=== PATIENT | female | born 1960 | race American Indian/Alaskan Native ===

== ENCOUNTER 2020-06-20 11:14 | Inpatient (IN) | payer OTHER ==
--- NOTE | 2020-06-20 11:34 | Emergency Department Report ---
HPI - General Chief Complaint: Neuro Symptoms/Deficit Time Seen by Provider: 06/20/20 11:15 - HPI HPI: This is a 59-year-old -[place] female presents to the emergency department via EMS from home with complaint of difficulty with her speech and ri ght-sided weakness. While the patient did have some difficulty with her speech last night at around 8 PM, this apparently resolved and the patient went to sleep at 2200 at her normal baseline status. She does not have any diagnosed medical conditions but it is unknown whether or not she follows with a physician regularly. Patient was found this morning to have the difficulty with speech and the right-sided weakness, by her , and EMS was called. Initially the patient was found to have an extremely elevated blood pressure with a systolic of close to 300. It was rechecked and found to be a systolic of 190. She does present to the emergency department hypertensive. ED Review of Systems ROS: Stated complaint: POSS CVA Other details as noted in HPI Comment: Unobtainable due to pts medical conditions Neurological: weakness, confusion, other (Aphasia) Physical Exam - Physical Exam Physical Exam: GENERAL: Patient is ill-appearing. HENT: Normocephalic. Atraumatic. Patient has moist mucous membranes. EYES: Extraocular motions are intact. Pupils equal reactive to light bilaterally. NECK: Supple. Trachea is midline. CHEST/LUNGS: Clear to auscultation. There is no respiratory distress noted. HEART/CARDIOVASCULAR: Regular. There is no tachycardia. There is no murmur. ABDOMEN: Abdomen is soft, nontender. Patient has normal bowel sounds. There is no abdominal distention. SKIN: Skin is warm and dry. NEURO: Patient is awake but is nonverbal and/or aphasic. Patient will try and follow commands. There is right-sided upper and lower extremity drift. MUSCULOSKELETAL: There is no tenderness or deformity. There is no limitation range of motion. There is no evidence of acute injury. ED Course - Reevaluation(s) Reevaluation #1: 06/20/20 15:41 Lab Results 06/20/20 06/20/20 06/20/20 Range/Units 11:44 11:44 11:44 WBC 7.9 (4.5-11.0) K/mm3 RBC 5.07 H (3.65-5.03) M/mm3 Hgb 16.6 H (10.1-14.3) gm/dl Hct 48.7 H (30.3-42.9) % MCV 96 (79-97) fl MCH 33 H (28-32) pg MCHC 34 (30-34) % RDW 13.9 (13.2-15.2) % Plt Count 175 (140-440) K/mm3 Lymph % (Auto) 28.3 (13.4-35.0) % Madison % (Auto) 5.1 (0.0-7.3) % Eos % (Auto) 0.4 (0.0-4.3) % Baso % (Auto) 0.5 (0.0-1.8) % Lymph # 2.2 (1.2-5.4) K/mm3 Madison # 0.4 (0.0-0.8) K/mm3 Eos # 0.0 (0.0-0.4) K/mm3 Baso # 0.0 (0.0-0.1) K/mm3 Seg Neutrophils % 65.7 (40.0-70.0) % Seg Neutrophils # 5.2 (1.8-7.7) K/mm3 PT 13.6 (12.2-14.9) Sec. INR 1.03 (0.87-1.13) APTT 29.0 (24.2-36.6) Sec. Thrombin Time 16.0 (15.1-19.6) Sec. Sodium 138 (137-145) mmol/L Potassium 4.7 (3.6-5.0) mmol/L Chloride 102.1 (98-107) mmol/L Carbon Dioxide 21 L (22-30) mmol/L Anion Gap 20 mmol/L BUN 15 (7-17) mg/dL Creatinine 0.8 (0.6-1.2) mg/dL Estimated GFR > 60 ml/min BUN/Creatinine Ratio 19 % Glucose 82 (65-100) mg/dL Calcium 9.9 (8.4-10.2) mg/dL Total Bilirubin 0.60 (0.1-1.2) mg/dL AST 24 (5-40) units/L ALT 9 (7-56) units/L Alkaline Phosphatase 108 (35-129) units/L Total Creatine Kinase 118 (30-135) units/L CK-MB (CK-2) 2.6 (0.0-4.0) ng/mL CK-MB (CK-2) Rel Index 2.2 (0-4) Troponin T < 0.010 (0.00-0.029) ng/mL Total Protein 7.8 (6.3-8.2) g/dL Albumin 4.1 (3.9-5) g/dL Albumin/Globulin Ratio 1.1 % - Consultations Consultation #1: 06/20/20 15:40 Patient was seen by the telemedicine neurologist, Dr. Mckenzie, immediately upon initiation of the code stroke. The patient was given an NIH stroke scale of 9. She is outside of the window for TPA. He does recommend CT angiography of imaging of the head and neck but has recommended that, secondary to her hypertensive issues, we wait for renal function to return from the labs. ED Medical Decision Making - Lab Data Result diagrams: 06/20/20 11:44 06/20/20 11:44 - EKG Data -: EKG Interpreted by Ks EKG shows normal: sinus rhythm, axis, intervals, QRS complexes, ST-T waves Rate: normal - EKG Data When compared to previous EKG there are: previous EKG unavailable Interpretation: normal EKG - Radiology Data Radiology results: report reviewed CT HEAD WITHOUT CONTRAST INDICATION : Stroke symptoms. TECHNIQUE: Axial imaging performed from the skull apex through the skull base without the use of contrast. Sagittal and coronal reformatted images. All CT scans at this location are performed using CT dose reduction for ALARA by means of automated exposure control. COMPARISON: None FINDINGS: Parenchyma: Mild cortical volume loss and mild chronic microangiopathy in the white matter are noted. Two chronic infarcts in the superior left basal ganglia measure 1.5 cm and 0.6 cm. There is an area of diminished attenuation in the left posterior watershed region measuring up to 2.9 x 1.9 cm in axial plane. This has the appearance of a subacute infarct. There is trace hyperdensity along the medial margin of this assumed subacute infarct which could represent minimal petechial hemorrhage. No large uncontained hemorrhage. Chronic focal infarct in the right cerebellum measures 1.2 x 0.4 cm. There is focal hyperdensity of the proximal basilar artery on axial image 9 which could represent a focal thrombosis although beam hardening artifact could also be considered. Ventricles: Ventricles are normal in size and appear symmetric. Bones: No acute osseous abnormality. Sinuses: Sinuses and mastoid air cells are clear. Soft tissues: Soft tissues including the orbits appear normal. IMPRESSION: Subacute appearing infarct in the left posterior watershed region as described. Question minimal petechial hemorrhagic change along the medial margin of this infarct. No large uncontained hemorrhage. Focal hyperdensity in the proximal basilar artery is suspicious for thrombosis. Volume loss, chronic microangiopathy in the white matter and chronic focal infarcts as described. CT angio head INDICATION / CLINICAL INFORMATION: 59 years Female; CVA. TECHNIQUE: Thin cut axial images obtained through the head during IV bolus contrast administration. Sagittal, coronal, and 3 plane MIP reconstructions performed by the technologist. NASCET type criteria used evaluate stenoses. Automated exposure control utilized for radiation reduction purposes. COMPARISON: None available. FINDINGS: INTERNAL CAROTID ARTERIES: There is mild calcification involving the distal internal carotid arteries without significant stenosis by NASCET criteria. VERTEBROBASILAR SYSTEM: The vertebral basilar system demonstrate appropriate caliber without significant focal stenosis at. 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 There is irregularity of the M1 segment of the left MCA near the trifurcation with moderate to marked stenosis on the mid images. This I would appear to be related to atherosclerotic disease. There is opacification of the adjacent trifurcation of vessels. However, there is relative paucity of vessels along the more distal branches with edema noted within the posterior left parietal lobe. This finding correlates with the earlier CT and compatible with evolving infarct. There is milder irregularity and narrowing of the right MCA trifurcation vessels. There is no significant focal stenosis involving visualized anterior cerebral arteries. ANEURYSM: None identified. ADDITIONAL FINDINGS: The dural venous sinuses opacify with contrast. IMPRESSION: There is moderate to marked stenosis involving the left M1 segment near the left MCA trifurcation as detailed above. There is edema projected within the left parietal lobe with possibility of adjacent of vessels compatible with decreased flow and evolving infarct. 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 - Medical Decision Making This patient presents to the emergency department with aphasia and right-sided deficits that were seen upon waking this morning. Last known well time was about 10 PM last night. Therefore the patient is not a TPA candidate. CT of the head without contrast shows what appears to be multiple old infarcts and a possible subacute infarct. Patient's labs have been mostly unremarkable. The patient has required a few doses of IV antihypertensive medication secondary to extremely elevated blood pressure. We are allowing some permissive hypertension and aiming for a blood pressure of about 170 systolic. The patient did have a CT angiography of the head and neck that shows moderate to marked stenosis involving the left M1 segment near the left MCA trifurcation. There appears to be an evolving infarct to the left parietal lobe. No large vessel occlusion or thrombus seen. Patient will be admitted to the hospital for further evaluation and treatment and was accepted for admission by the hospitalist, Dr. Aly. Critical Care Time: Yes Critical care time in (mins) excluding proc time.: 45 Critical care attestation.: If time is entered above; I have spent that time in minutes in the direct care of this critically ill patient, excluding procedure time. Due to the immediate potential for life-threatening deterioration due to underlying neurologic condition, I spent 45 minutes of critical care time with the patient. Critical Care Time: 45 minutes ED Disposition Clinical Impression: Acute CVA (cerebrovascular accident), Hypertensive urgency, malignant Disposition: DC-[id number] OP ADMIT IP TO THIS HOSP Is pt being admited?: Yes Condition: Poor Referrals: PRIMARY CARE, [Primary Care Provider] - 3-5 Days Time of Disposition: 15:36
--- NOTE | 2020-06-20 11:38 | Emergency Department Report ---
ED Neuro Deficit HPI - General Chief Complaint: Neuro Symptoms/Deficit Stated Complaint: POSS CVA Time Seen by Provider: 06/20/20 11:15 Source: patient, EMS Mode of arrival: Stretcher Limitations: No Limitations - History of Present Illness Initial Comments: [facility] Date of Service: 06/20/2020 11:08:24 Impression: Large Vessel Infarct Left Hemispheric Infarct CAITLIN Distribution Infarct Comments/Sign-Out: In this patient with no medical history (she may not of seen a doctor in years) she has severe hypertension and surprisingly multiple prior strokes which supposedly had no overt manifestation. She needs advanced imaging but there may already be an active infarct. She needs Echo, A1c, fasting lipid profile, blood pressure to be controlled down to 160 to 180 systolic today. Mechanism of Stroke: Not Clear Metrics: Last Known Well: 06/19/2020 22:00:00 [facility] Notification Time: 06/20/2020 11:07:31 Arrival Time: 06/20/2020 11:13:20 Stamp Time: 06/20/2020 11:08:24 Time First Login Attempt: 06/20/2020 11:11:04 Video Start Time: 06/20/2020 11:11:04 Symptoms: Unable to speak and right-sided weakness NIHSS Start Assessment Time: 06/20/2020 11:15:30 Patient is not a candidate for Alteplase/Activase. Patient was not deemed candidate for Alteplase/Activase thrombolytics because of Last Well Known Above 4.5 Hours. Video End Time: 06/20/2020 11:30:37 CT head was reviewed and results were: Chronic infarct left occipital lobe, left swartz radiata, multiple lacunar infarction thalamus, basal ganglia bilaterally. There is but I think may be a subacute infarct in the para sagittal left frontal lobe in the intracerebral artery distribution. Clinical Presentation is Suggestive of Large Vessel Occlusive Disease, Recommendations are as Follows CTA Head and Neck. Advanced Imaging to be Reviewed by ED Provider and SAM. Radiologist was not called back for review of advanced imaging because Not yet done although I think the possibility of intervention is low. ED Physician notified of diagnostic impression and management plan on 06/20/2020 11:29:00 Our recommendations are outlined below. Recommendations: Activate Stroke Protocol Admission/Order Set Stroke/Telemetry Floor Neuro Checks Bedside Swallow Eval DVT Prophylaxis IV Fluids, Normal Saline Head of Bed 30 Degrees Euglycemia and Avoid Hyperthermia (PRN Acetaminophen) Antiplatelet Therapy Recommended Sign Out: Discussed with Emergency Department Provider History of Present Illness: Patient is a 60 year old Female. 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 Initial blood pressure was said to be 300/190 and subsequent 199/170. No significant medical history including hypertension. On no prescription medications. Last seen normal was beyond 4.5 hours of presentation. There is no history of hemorrhagic complications or intracranial hemorrhage. There is no history of Recent Anticoagulants. There is no history of recent major surgery. There is no history of recent stroke. Past Medical History: Anticoagulant use: No Antiplatelet use: No Examination: BP(239/91 most recently), Pulse(86), Blood Glucose(80) 1A: Level of Consciousness - Alert; keenly responsive + 0 1B: Ask Month and Age - Aphasic + 2 1C: Blink Eyes & Squeeze Hands - Performs Both Tasks + 0 2: Test Horizontal Extraocular Movements - Normal + 0 3: Test Visual Christianson - No Visual Loss + 0 4: Test Facial Palsy (Use Grimace if Obtunded) - Normal symmetry + 0 5A: Test Left Arm Motor Drift - No Drift for 10 Seconds + 0 5B: Test Right Arm Motor Drift - Drift, but doesn't hit bed + 1 6A: Test Left Leg Motor Drift - No Drift for 5 Seconds + 0 6B: Test Right Leg Motor Drift - Drift, but doesn't hit bed + 1 7: Test Limb Ataxia (FNF/Heel-Grimaldo) - No Ataxia + 0 8: Test Sensation - Normal; No sensory loss + 0 9: Test Language/Aphasia - Mute/Global Aphasia: No Usable Speech/Auditory Comprehension + 3 10: Test Dysarthria - Mute/Anarthric + 2 11: Test Extinction/Inattention - No abnormality + 0 NIHSS Score: 9 Patient/Family was informed the Neurology Consult would happen via TeleHealth consult by way of interactive audio and video telecommunications and consented to receiving care in this manner. Due to the immediate potential for life-threatening deterioration due to underlying acute neurologic illness, I spent 35 minutes providing critical care. This time includes time for face to face visit via telemedicine, review of medical records, imaging studies and discussion of findings with providers, the patient and/or family. Dr Blair Mckenzie [facility] Case [id number] - Related Data Allergies/Adverse Reactions: Allergies Allergy/AdvReac Type Severity Reaction Status Date / Time No Known Allergies Allergy Unverified 06/20/20 11:15 ED Review of Systems ROS: Stated complaint: POSS CVA Other details as noted in HPI Neurological: weakness, confusion, other (Aphasia) ED Neuro Physical Exam - General Limitations: No Limitations General appearance: in distress Suspected Stroke: Yes - NIHSS Assessment Interval: Baseline 1a. Level of Consciousness: alert/keenly responsive 1b. LOC Questions: aphasic 1c. LOC Commands: performs tasks correctly 2. Best Gaze: normal 3. Visual: no visual loss 4. Facial Palsy: normal symmetrical movement 5b. Motor Arm Right: drift 5a. Motor Arm Left: no drift 6a. Motor Leg Left: no drift 6b. Motor Leg Right: drift 7. Limb Ataxia: absent 8. Sensory: normal 9. Best Language: mute/global aphasia 10. Dysarthria: severe dysarthria 11. Extinction/Inattention: no abnormality Total Score: 9 Stroke Severity: Moderate Stroke Critical care attestation.: If time is entered above; I have spent that time in minutes in the direct care of this critically ill patient, excluding procedure time. ED Disposition Clinical Impression: Stroke due to embolism of left anterior cerebral artery Disposition: OP ADMIT IP TO THIS HOSP Is pt being admited?: Yes Does the pt Need Aspirin: Yes Condition: Poor Referrals: PRIMARY CARE,MD [Primary Care Provider] - 3-5 Days
--- NOTE | 2020-06-20 11:52 | Cat Scan Report ---
CT HEAD WITHOUT CONTRAST INDICATION : Stroke symptoms. TECHNIQUE: Axial imaging performed from the skull apex through the skull base without the use of con trast. Sagittal and coronal reformatted images. All CT scans at this location are performed using C T dose reduction for ALARA by means of automated exposure control. COMPARISON: None FINDINGS: Parenchyma: Mild cortical volume loss and mild chronic microangiopathy in the white matter are noted . Two chronic infarcts in the superior left basal ganglia measure 1.5 cm and 0.6 cm. There is an are a of diminished attenuation in the left posterior watershed region measuring up to 2.9 x 1.9 cm in ax ial plane. This has the appearance of a subacute infarct. There is trace hyperdensity along the media l margin of this assumed subacute infarct which could represent minimal petechial hemorrhage. No larg e uncontained hemorrhage. Chronic focal infarct in the right cerebellum measures 1.2 x 0.4 cm. There is focal hyperdensity of the proximal basilar artery on axial image 9 which could represent a focal t hrombosis although beam hardening artifact could also be considered. Ventricles: Ventricles are normal in size and appear symmetric. Bones: No acute osseous abnormality. Sinuses: Sinuses and mastoid air cells are clear. Soft tissues: Soft tissues including the orbits appear normal. IMPRESSION: Subacute appearing infarct in the left posterior watershed region as described. Question minimal baljeet chial hemorrhagic change along the medial margin of this infarct. No large uncontained hemorrhage. Focal hyperdensity in the proximal basilar artery is suspicious for thrombosis. Volume loss, chronic microangiopathy in the white matter and chronic focal infarcts as described. CODE STROKE: Time of Communication (EST): 1144 hours Licensed Practitioner Receiving Report: Dr. Levine A read back was performed Signer Name: Kip Watson Jr, MD Signed: 06/20/2020 11:48 AM Workstation Name: [id number]
[2020-06-20 12:25] LABS: Basophils % (Auto) 0.5 % (0.0-1.8); Eosinophils % (Auto) 0.4 % (0.0-4.3); Hematocrit 48.7 % (30.3-42.9); Hemoglobin 16.6 gm/dl (10.1-14.3); Lymphocytes # (Auto) 2.2 K/mm3 (1.2-5.4); Lymphocytes % (Auto) 28.3 % (13.4-35.0); Mean Corpuscular HGB Conc 34 % (30-34); Mean Corpuscular Volume 96 fl (79-97); Monocytes # (Auto) 0.4 K/mm3 (0.0-0.8); Monocytes % (Auto) 5.1 % (0.0-7.3); Platelet Count 175 K/mm3 (140-440); Red Blood Count 5.07 M/mm3 (3.65-5.03); Red Cell Distribution Width 13.9 % (13.2-15.2)
[2020-06-20 12:43] LABS: Creatine Kinase MB 2.6 ng/mL (0.0-4.0)
[2020-06-20 12:44] LABS: INR 1.03 (0.87-1.13)
[2020-06-20 12:45] LABS: Alanine Aminotransferase 9 units/L (7-56); Albumin 4.1 g/dL (3.9-5); BUN/Creatinine Ratio 19; Blood Urea Nitrogen 15 mg/dL (7-17); Calcium 9.9 mg/dL (8.4-10.2); Hemolysis Index 20
--- NOTE | 2020-06-20 15:27 | Cat Scan Report ---
CT angio head INDICATION / CLINICAL INFORMATION: 59 years Female; CVA. TECHNIQUE: Thin cut axial images obtained through the head during IV bolus contrast administration. S agittal, coronal, and 3 plane MIP reconstructions performed by the technologist. NASCET type criteria used evaluate stenoses. Automated exposure control utilized for radiation reduction purposes. COMPARISON: None available. FINDINGS: INTERNAL CAROTID ARTERIES: There is mild calcification involving the distal internal carotid arteries without significant stenosis by NASCET criteria. VERTEBROBASILAR SYSTEM: The vertebral basilar system demonstrate appropriate caliber without signific ant focal stenosis at. 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 There is irregularity of the M1 segment of the left MCA near the trifurcation with moderate to marked stenosis on the mid images. This I would appear to be related to atherosclerotic disease. There is o pacification of the adjacent trifurcation of vessels. However, there is relative paucity of vessels a long the more distal branches with edema noted within the posterior left parietal lobe. This finding correlates with the earlier CT and compatible with evolving infarct. There is milder irregularity and narrowing of the right MCA trifurcation vessels. There is no signifi cant focal stenosis involving visualized anterior cerebral arteries. ANEURYSM: None identified. ADDITIONAL FINDINGS: The dural venous sinuses opacify with contrast. IMPRESSION: There is moderate to marked stenosis involving the left M1 segment near the left MCA trifurcation as detailed above. There is edema projected within the left parietal lobe with possibility of adjacent o f vessels compatible with decreased flow and evolving infarct. 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 Signer Name: Maximiliano Milner MD Signed: 06/20/2020 3:23 PM Workstation Name: [id number]
--- NOTE | 2020-06-20 15:33 | Cat Scan Report ---
CT angio neck INDICATION / CLINICAL INFORMATION: 59 years Female; CVA. TECHNIQUE: Thin cut axial images obtained through the head during IV bolus contrast administration. S agittal, coronal, and 3 plane MIP reconstructions performed by the technologist. NASCET type criteria used evaluate stenoses. All CT scans at this location are performed using CT dose reduction for ALAR A by means of automated exposure control. COMPARISON: None available. FINDINGS: CAROTID ARTERIES: There is no significant stenosis involving the carotid arteries by NASCET criteria. The carotid bifurcations are widely patent. VERTEBRAL ARTERIES: The vertebral arteries also demonstrate appropriate caliber without significant f ocal narrowing. ARCH: There is mild calcification involving the origin of the left subclavian artery. However, there is mild, less than 20% stenosis. ADDITIONAL FINDINGS: Remainder of the surrounding soft tissues are grossly normal. IMPRESSION: There is no significant stenosis involving carotid or vertebral arteries by NASCET criteria. Signer Name: Maximiliano Milner MD Signed: 06/20/2020 3:28 PM Workstation Name: [id number]
[2020-06-20] MEDS ORDERED: HYDROmorphone 1 MG/1 ML INJ ONE ×2 (18:25→20:46)
[2020-06-20] MEDS: HYDROmorphone 1 MG/1 ML INJ IV PRN ×2 (18:31→21:45)
--- NOTE | 2020-06-20 21:31 | History and Physical Report ---
History of Present Illness Date of examination: 06/20/20 Date of admission: 06/20/20 15:37 Chief complaint: Right-sided weakness and dysphasia since a.m. History of present illness: 49-year-old -[place] female with no significant past medical history was noticed to have difficulty in speech last night around 8 PM. This resolved and patient went to sleep. Did not seek any medical attention. In the a.m. patient had difficulty talking and also right-sided weakness. Her called EMS and in the emergency room her blood pressure was very high and a systolic blood pressure of 190 and diastolic of around 113. Patient was also having right- sided total weakness code stroke was called and stroke work-up was initiated patient was not a candidate for TPA because of time labs. No chest pain. No shortness of breath. No seizures. Not taking any blood pressure medications. Past History Past Medical History: hypertension (Noncompliant) Past Surgical History: No surgical history Social history: lives with family, full code Family history: hypertension Medications and Allergies Allergies Allergy/AdvReac Type Severity Reaction Status Date / Time No Known Allergies Allergy Unverified 06/20/20 11:15 Active Meds: Active Medications Hydromorphone HCl (Dilaudid) 0.5 mg IV Q3H PRN PRN Reason: Pain , Severe (7-10) Review of Systems All systems: negative Constitutional: fatigue, weakness, no weight loss, no weight gain, no fever Ears, nose, mouth and throat: no ear pain, no ear discharge, no nasal congestion, no dysphagia Breasts: deferred Cardiovascular: no chest pain, no orthopnea, no palpitations, no rapid/irregular heart beat Respiratory: no cough, no cough with sputum, no excessive sputum Gastrointestinal: no abdominal pain, no nausea, no vomiting Genitourinary Female: no dysuria, no urinary frequency, no urgency, no stress incontinence Menstruation: ammenorrhea Musculoskeletal: no neck stiffness, no neck pain Integumentary: no rash, no pruritis Neurological: paralysis, weakness, change in speech Psychiatric: no anxiety, no memory loss Endocrine: no cold intolerance, no heat intolerance, no polyphagia Hematologic/Lymphatic: no easy bruising, no easy bleeding Allergic/Immunologic: no urticaria, no allergic rhinitis, no wheezing Exam - Constitutional Vitals: Temp Pulse Resp BP Pulse Ox 97.3 F L 69 13 189/69 98 09/10/20 11:27 06/20/20 19:30 06/20/20 19:30 06/20/20 19:30 06/20/20 19:30 General appearance: Present: no acute distress, well-nourished - EENT Eyes: Present: PERRL ENT: hearing intact, clear oral mucosa - Neck Neck: Present: supple, normal ROM - Respiratory Respiratory effort: normal Respiratory: bilateral: CTA - Cardiovascular Heart rate: 78 Rhythm: regular Heart Sounds: Present: S1 & S2. Absent: rub, click - Extremities Extremities: pulses symmetrical, No edema Peripheral Pulses: within normal limits - Abdominal General gastrointestinal: Present: soft, non-tender, non-distended, normal bowel sounds Female genitourinary: Present: normal - Integumentary Integumentary: Present: clear, warm, dry - Musculoskeletal Musculoskeletal: right sided weakness (5/5 weakness ) - Psychiatric Psychiatric: appropriate mood/affect, intact judgment & insight - Neurologic Neurologic: focal deficits, other (Dysphasia present.) - Allied Health Allied health notes reviewed: nursing, case management HEART Score - HEART Score History: Slightly suspicious EKG: Non-specific Age: 45-65 Risk factors: 1-2 risk factors Troponin: Troponin T < 0.010 ng/mL (0.00-0.029) 06/20/20 11:44 Troponin: < normal limit HEART Score: 3 - Critical Actions Critical Actions: 0-3 pts:0.9-1.7%risk of adverse cardiac event.Candidate for discharge Results - Labs CBC & Chem 7: 06/20/20 11:44 06/20/20 11:44 Labs: Laboratory Last Values WBC 7.9 K/mm3 (4.5-11.0) 06/20/20 11:44 RBC 5.07 M/mm3 (3.65-5.03) H 06/20/20 11:44 Hgb 16.6 gm/dl (10.1-14.3) H 06/20/20 11:44 Hct 48.7 % (30.3-42.9) H 06/20/20 11:44 MCV 96 fl (79-97) 06/20/20 11:44 MCH 33 pg (28-32) H 06/20/20 11:44 MCHC 34 % (30-34) 06/20/20 11:44 RDW 13.9 % (13.2-15.2) 06/20/20 11:44 Plt Count 175 K/mm3 (140-440) 06/20/20 11:44 Lymph % (Auto) 28.3 % (13.4-35.0) 06/20/20 11:44 Alcorn % (Auto) 5.1 % (0.0-7.3) 06/20/20 11:44 Eos % (Auto) 0.4 % (0.0-4.3) 06/20/20 11:44 Baso % (Auto) 0.5 % (0.0-1.8) 06/20/20 11:44 Lymph # 2.2 K/mm3 (1.2-5.4) 06/20/20 11:44 Alcorn # 0.4 K/mm3 (0.0-0.8) 06/20/20 11:44 Eos # 0.0 K/mm3 (0.0-0.4) 06/20/20 11:44 Baso # 0.0 K/mm3 (0.0-0.1) 06/20/20 11:44 Seg Neutrophils % 65.7 % (40.0-70.0) 06/20/20 11:44 Seg Neutrophils # 5.2 K/mm3 (1.8-7.7) 06/20/20 11:44 PT 13.6 Sec. (12.2-14.9) 06/20/20 11:44 INR 1.03 (0.87-1.13) 06/20/20 11:44 APTT 29.0 Sec. (24.2-36.6) 06/20/20 11:44 Thrombin Time 16.0 Sec. (15.1-19.6) 06/20/20 11:44 Sodium 138 mmol/L (137-145) 06/20/20 11:44 Potassium 4.7 mmol/L (3.6-5.0) 06/20/20 11:44 Chloride 102.1 mmol/L (98-107) 06/20/20 11:44 Carbon Dioxide 21 mmol/L (22-30) L 06/20/20 11:44 Anion Gap 20 mmol/L 06/20/20 11:44 BUN 15 mg/dL (7-17) 06/20/20 11:44 Creatinine 0.8 mg/dL (0.6-1.2) 06/20/20 11:44 Estimated GFR > 60 ml/min 06/20/20 11:44 BUN/Creatinine Ratio 19 % 06/20/20 11:44 Glucose 82 mg/dL (65-100) 06/20/20 11:44 Calcium 9.9 mg/dL (8.4-10.2) 06/20/20 11:44 Total Bilirubin 0.60 mg/dL (0.1-1.2) 06/20/20 11:44 AST 24 units/L (5-40) 06/20/20 11:44 ALT 9 units/L (7-56) 06/20/20 11:44 Alkaline Phosphatase 108 units/L (35-129) 06/20/20 11:44 Total Creatine Kinase 118 units/L (30-135) 06/20/20 11:44 CK-MB (CK-2) 2.6 ng/mL (0.0-4.0) 06/20/20 11:44 CK-MB (CK-2) Rel Index 2.2 (0-4) 06/20/20 11:44 Troponin T < 0.010 ng/mL (0.00-0.029) 06/20/20 11:44 Total Protein 7.8 g/dL (6.3-8.2) 06/20/20 11:44 Albumin 4.1 g/dL (3.9-5) 06/20/20 11:44 Albumin/Globulin Ratio 1.1 % 06/20/20 11:44 Short CBC 06/20/20 Range/Units 11:44 WBC 7.9 (4.5-11.0) K/mm3 Hgb 16.6 H (10.1-14.3) gm/dl Hct 48.7 H (30.3-42.9) % Plt Count 175 (140-440) K/mm3 BMP 06/20/20 11:44 Sodium 138 Potassium 4.7 Chloride 102.1 Carbon Dioxide 21 L BUN 15 Creatinine 0.8 Glucose 82 Calcium 9.9 Cardiac Enzymes 06/20/20 Range/Units 11:44 Total Creatine Kinase 118 (30-135) units/L CK-MB (CK-2) 2.6 (0.0-4.0) ng/mL Troponin T < 0.010 (0.00-0.029) ng/mL Liver Function 06/20/20 Range/Units 11:44 Total Bilirubin 0.60 (0.1-1.2) mg/dL AST 24 (5-40) units/L ALT 9 (7-56) units/L Alkaline Phosphatase 108 (35-129) units/L Albumin 4.1 (3.9-5) g/dL - Imaging and Cardiology EKG: report reviewed (Sinus rhythm no acute ST-T wave changes) CT Scan - head: report reviewed Imaging and Cardiology: head CT Subacute appearing infarct in the left posterior watershed region as described. Question minimal petechial hemorrhagic change along the medial margin of this infarct. No large uncontained hemorrhage. Focal hyperdensity in the proximal basilar artery suspicious for thrombosis. Volume loss. Chronic microangiopathy in the white matter and chronic focal infarcts as described. Head CTA There is moderate to marked stenosis involving the left M1 segment near the left MCA trifurcation as detailed above. There is edema projected within the left parietal lobe with possibility of a distant of results compatible with decreased flow and involving infarct. 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 Neck CTA There is no significant stenosis involving the carotid or vertebral arteries by NASCET criteria Meek/IV: IV Catheter Type [Left INT / Saline Lock Antecubital] IV Catheter Type [Right INT / Saline Lock Antecubital] IV Catheter Type [Left Forearm INT / Saline Lock ] Assessment and Plan Advance Directives: Yes (Full code) VTE prophylaxis?: Chemical Plan of care discussed with patient/family: Yes - Patient Problems (1) Acute CVA (cerebrovascular accident) Current Visit: Yes Status: Acute Plan to address problem: CVA protocol Neurology consult requested Patient not a TPA candidate Patient has acute changes on the left MCA territory MRI requested No MRA because patient has neck CTA and head CTA Echocardiogram Carotid duplex cannot order because of the neck CTA and head CTA Neurology consult requested (2) Hypertensive urgency, malignant Current Visit: Yes Status: Acute Plan to address problem: Pneumatic antihypertensives started and IV labetalol/oral clonidine as needed. IV hydralazine is not available. Patient started on valsartan 160 every 12 and carvedilol 12.5-12 and amlodipine 10 mg p.o. daily. (3) Volume depletion Current Visit: Yes Status: Acute Plan to address problem: As indicated by high hemoglobin and hematocrit IV fluids for 12 to 24 hours (4) DVT prophylaxis Current Visit: Yes Status: Acute Plan to address problem: Patient was not started on heparin because of petechial hemorrhages on CT head GI prophylaxis
[2020-06-20] MEDS ORDERED: ONDANSETRON 4 MG/2 ML INJ IV PRN (21:32)
[2020-06-20] MEDS ORDERED: ACETAMINOPHEN 325 MG TAB PO PRN (21:32)
[2020-06-20] MEDS ORDERED: oxyCODONE /ACETAMINOPHEN 5-325MG TAB PO PRN (21:32)
[2020-06-20] MEDS ORDERED: HEPARIN 5,000 UNIT/1 ML VIAL ONE (22:53)
[2020-06-20] MEDS ORDERED: FAMOTIDINE 20 MG/2 ML INJ IV ONE (22:54)
[2020-06-20] MEDS: HEPARIN 5,000 UNIT/1 ML VIAL SUB-Q SCH (22:55)
[2020-06-20] MEDS: FAMOTIDINE 20 MG/2 ML INJ IV SCH (22:55)
[2020-06-21] MEDS ORDERED: hydrALAZINE 20 MG/1 ML INJ IV ONE (02:18)
[2020-06-21] MEDS: SODIUM CHLORIDE 0.9% 1000 ML 1,000 ML IV SCH (02:45)
[2020-06-21 08:49] LABS: Basophils # (Auto) 0.1 K/mm3 (0.0-0.1); Basophils % (Auto) 0.9 % (0.0-1.8); Eosinophils % (Auto) 0.6 % (0.0-4.3); Hematocrit 45.6 % (30.3-42.9); Hemoglobin 15.2 gm/dl (10.1-14.3); Lymphocytes # (Auto) 2.5 K/mm3 (1.2-5.4); Lymphocytes % (Auto) 33.6 % (13.4-35.0); Mean Corpuscular HGB Conc 33 % (30-34); Mean Corpuscular Volume 96 fl (79-97); Monocytes # (Auto) 0.5 K/mm3 (0.0-0.8); Monocytes % (Auto) 7.2 % (0.0-7.3); Platelet Count 182 K/mm3 (140-440); Red Blood Count 4.73 M/mm3 (3.65-5.03); Red Cell Distribution Width 14.1 % (13.2-15.2)
[2020-06-21 09:12] LABS: Alanine Aminotransferase 8 units/L (7-56); Albumin 4.1 g/dL (3.9-5); BUN/Creatinine Ratio 21; Blood Urea Nitrogen 19 mg/dL (7-17); Chol/HDL Ratio 2.72 %; HDL Cholesterol 77 mg/dL (40-59); Hemolysis Index 8; LDL Cholesterol,Direct 131 mg/dL (50-130)
[2020-06-21] MEDS: ASPIRIN 325 MG TAB PO SCH ×2 (10:03→11:30)
[2020-06-21] MEDS: VALSARTAN 160MG TAB PO SCH ×3 (10:03→21:18)
[2020-06-21] MEDS: HEPARIN 5,000 UNIT/1 ML VIAL SUB-Q SCH ×2 (11:20→21:15)
[2020-06-21] MEDS: FAMOTIDINE 20 MG/2 ML INJ IV SCH ×2 (11:20→21:18)
--- NOTE | 2020-06-21 12:12 | Magnetic Resonance Report ---
MRI BRAIN 06/21/2020 INDICATION / CLINICAL INFORMATION: MAIN. Beats disturbance. Right-sided weakness. TECHNIQUE: Multiplanar, multisequence MR images of the brain were obtained. COMPARISON: CT brain 06/20/2020 FINDINGS: BRAIN / INTRACRANIAL CONTENTS: Unenhanced MR images of the brain from the presence of acute ischemic injury posterior portion of the left parietal cortex. A wedge-shaped area of restricted diffusion is present in the left parieto-occipital cortex, with some patchy areas of cortical restricted diffusion in the more anterior left parietal lobe. This would be in the distribution of posterior branch of th e left vertebral artery. There is no evidence of hemorrhage. Overall mass effect is limited. Chronic subcortical ischemic changes present in the left frontal and parietal white matter. There is also evidence of a small area of cortical encephalomalacia in the right posterior lateral temporal lo be and right occipital lobe. There is no evidence of hemorrhage or mass. There are no abnormal extra-axial fluid collections. EXTRACRANIAL: Unremarkable CRANIOCERVICAL JUNCTION: No significant abnormality. VASCULAR FLOW-VOIDS: No significant abnormality. IMPRESSION: Acute partial left MCA distribution infarct. Chronic subcortical ischemic changes in the left side. No evidence of hemorrhage. Signer Name: Naun Suresh MD Signed: 06/21/2020 12:07 PM Workstation Name: [id number]
--- NOTE | 2020-06-21 17:14 | Consultation ---
History of Present Illness Consult date: 06/21/20 Reason for Consult: Right sided weakness, speech difficulty Chief complaint: Right sided weakness, speech difficulty History of present illness: Pateint is a 59 y/o woman w/ no known past medical history . She presented yesterday wt symptoms of difficulty with speech and right sided weakness. Symptoms started around 8pm the night before. BP was severely elevated initially, BP of 239/91. In the ER, she was found to have aphasia, dysarthria, and right sided weakness. Past History Past Medical History: No medical history, hypertension (Noncompliant) Past Surgical History: No surgical history Social history: lives with family, full code Family history: hypertension Medications and Allergies Allergies Allergy/AdvReac Type Severity Reaction Status Date / Time No Known Allergies Allergy Unverified 06/20/20 11:15 Active Meds: Active Medications Acetaminophen (Tylenol) 650 mg PO Q4H PRN PRN Reason: Pain MILD(1-3)/Fever >100.5/MASSEY Aspirin (Aspirin) 325 mg PO QDAY [facility] Last Admin: 06/21/20 11:30 Dose: 325 mg Documented by: Atorvastatin Calcium (Lipitor) 40 mg PO QHS [facility] Last Admin: 06/20/20 22:50 Dose: Not Given Documented by: Famotidine (Pepcid) 20 mg IV BID [facility] Last Admin: 06/21/20 11:20 Dose: 20 mg Documented by: Heparin Sodium (Porcine) (Heparin) 5,000 unit SUB-Q Q12HR [facility] Last Admin: 06/21/20 11:20 Dose: 5,000 unit Documented by: Hydromorphone HCl (Dilaudid) 0.5 mg IV Q3H PRN PRN Reason: Pain , Severe (7-10) Last Admin: 06/20/20 21:45 Dose: 0.5 mg Documented by: Sodium Chloride (Nacl 0.9% 1000 Ml) 1,000 mls @ 42 mls/hr IV DIRECT [facility] Last Admin: 06/21/20 02:45 Dose: 42 mls/hr Documented by: Ondansetron HCl (Zofran) 4 mg IV Q8H PRN PRN Reason: Nausea And Vomiting Oxycodone/Acetaminophen (Percocet 5/325) 1 tab PO Q6H PRN PRN Reason: Pain, Moderate (4-6) Sodium Chloride (Sodium Chloride Flush Syringe 10 Ml) 10 ml IV BID [facility] Last Admin: 06/21/20 11:20 Dose: 10 ml Documented by: Sodium Chloride (Sodium Chloride Flush Syringe 10 Ml) 10 ml IV PRN PRN PRN Reason: LINE FLUSH Valsartan (Diovan) 160 mg PO BID [facility] Last Admin: 06/21/20 11:30 Dose: 160 mg Documented by: Review of Systems All systems: negative Neurological: weakness, change in speech Physical Examination - Vital Signs Vital Signs: Vital Signs Temp Pulse Resp BP Pulse Ox 97.3 F L 76 20 239/91 99 06/20/20 11:27 06/20/20 11:27 06/20/20 11:27 06/20/20 11:27 06/20/20 11:27 - Physical Exam Narrative exam: Patient is alert, awake, oriented only to name, follows 2-step commands. Noted to have significant dysarthria and aphasia. PERRL, EOMI, Rt. HH, tongue midline, bilaterally intact to LT, no facial weakness noted. 5/5 strength in LUE/LLE, 2/5 in RUE, 2/5 in RLE. Decreased on right to light touch. Unable to assess FTN and HTS due to weakness. - Level of Consciousness 1a. Level of Consciousness: alert/keenly responsive - LOC Questions 1b. LOC Questions: aphasic - LOC Command 1c. LOC Commands: performs tasks correctly - Best Gaze 2. Best Gaze: normal - Visual 3. Visual: complete hemianopia - Facial Palsy 4. Facial Palsy: normal symmetrical movement - Motor Arm 5a. Motor Arm Left: no drift 5b. Motor Arm Right: no gravity effort - Motor Leg 6a. Motor Leg Left: no drift 6b. Motor Leg Right: no gravity effort - Limb Ataxia 7. Limb Ataxia: absent - Sensory 8. Sensory: mild/moderate sensory loss - Best Language 9. Best Language: severe aphasia - Dysarthria 10. Dysarthria: mild/moderate dysarthria - Extinction and Inattention 11. Extinction/Inattention: no abnormality - Scoring Total Score: 14 Stroke Severity: Moderate Stroke Results - Laboratory Findings CBC and BMP: 06/21/20 08:14 06/21/20 08:14 Abnormal Lab Findings: Abnormal Labs 06/20/20 06/20/20 06/21/20 11:44 11:44 08:14 RBC 5.07 H Hgb 16.6 H 15.2 H Hct 48.7 H 45.6 H MCH 33 H Carbon Dioxide 21 L BUN Cholesterol LDL Cholesterol Direct HDL Cholesterol 06/21/20 08:14 RBC Hgb Hct MCH Carbon Dioxide 21 L BUN 19 H Cholesterol 210 H LDL Cholesterol Direct 131 H HDL Cholesterol 77 H Assessment and Plan Pateint is a 59 y/o woman w/ no known past medical history, who p/w right sided weakness and difficulty with speech. According to the patient's clinical findings, she has had a stroke. Plan: 1. Stroke: - MRI brain: Left MCA territory parietal infarct noted. - CT head: Subacute infarct noted in left parietal region. Chronic basal ganglia infarct noted. - CTA head/neck: [id number] stenosis of left M1. - Echo: Ef 60-65%, LA normal size, bubble study negative. - Cont. ASA - Would consider for patient to be started on DAPT, however NIHSS is high, and there is potenital risk of hemorrhagic conversion, with possible area of hemorrhagic conversion seen on CT head. Therefore will only recommend ASA 81mg daily for now. - Cont. statin. LDL goal <70 - Telemetry monitoring while in house - PT/OT/ST - DVT Ppx: Recommend lovenox - Etiology of stroke is intracranial atherosclerosis vs. cryptogenic. Therefore recommend long-term cardiac monitoring as outpatient with 30-day MCOT or ILR with cardiology. - Recommend for patient to follow up with neurology as outpatient. 2. Hypertension: - Recommend BP goal of <220/120 to allow for permissive HTN for first 24-48 hours. Can target normotension after that. - Will sign off, as I am not covering neurology service over the weekend. Please consult neurologist covering the service over the weekend for further neurologic monitoring and management, if felt to be necessary by primary team. If in-house neurologist is not available, recommend transferring patient to facility where neurology service is available for further management. Thank you for allowing me to take part in the care of this patient. Tae Louis MD Neurology This clinical encounter was provided via live telemedicine platform. Consult ative service was provided for neurology to support local providers. The Acute Teleneurology team should be contacted with any neurologic worsening or clinical changes, new test results, or new patient history that is reported to or discovered by the local team following completion of the teleneurology consultation, specifically that which has the potential to impact the consultative recommendations. Patient/Family was informed the Neurology Consult would happen via TeleHealth consult by way of interactive audio and video telecommunications and consented to receiving care in this manner. Due to the potential for life-threatening deterioration due to underlying neurologic illness, and limited resources available for patient care, telemedicine was used as means of patient care. Telemedicine consultation is limited in the extent of physical exam that can be virtually provided. Time spent evaluating patient includes time for face to face visit via telemedicine, review of medical records, imaging studies and discussion of findings with providers, the patient and/or family.
--- NOTE | 2020-06-21 18:53 | Progress Note ---
Assessment and Plan - Patient Problems (1) Acute CVA (cerebrovascular accident) Current Visit: Yes Status: Acute Plan to address problem: Patient with acute CVA right sided. MRI revealed parietal infarct. CT head and neck showed moderate to severe stenosis LM1. Patient to receive rehab services. Aspirin. Antiplatelet anti-thrombin with statin. For the following eval PT OT eval. (2) Hypertensive urgency, malignant Current Visit: Yes Status: Acute Plan to address problem: Patient blood pressure has been weaned down to at goal. On valsartan blood pressure 170/76. And 15227 is out of target systolic blood pressure given acute CVA 4 continue perfusion. Will titrate further in a.m. (3) Volume depletion Current Visit: Yes Status: Acute Plan to address problem: Sustain volume repletion with IV gentle IV hydration. Subjective Date of service: 06/21/20 Principal diagnosis: Stroke Interval history: Patient 59-year-old female presented with difficulty speaking an acute episode of dysphasia and right-sided weakness. Blood pressure in ED found to be 190/ 113. Patient further work-up revealed acute CVA. Patient placed on aspirin beta-sanju and statin. Patient currently going down for MRI. Objective - Constitutional Vitals: Vital Signs - 12hr 06/21/20 06/21/20 06/21/20 08:00 08:32 08:37 Pulse Rate 80 75 75 Pulse Rate [ Apical] Pulse Rate [ Left Radial] Pulse Rate [ Right Radial] Respiratory 18 Rate Blood Pressure 162/76 O2 Sat by Pulse 100 100 Oximetry 06/21/20 06/21/20 06/21/20 10:00 11:30 11:45 Pulse Rate 80 74 Pulse Rate [ 80 Apical] Pulse Rate [ 80 Left Radial] Pulse Rate [ 80 Right Radial] Respiratory 19 Rate Blood Pressure 176/77 O2 Sat by Pulse 99 98 Oximetry 06/21/20 06/21/20 06/21/20 12:00 16:14 17:00 Pulse Rate 81 74 74 Pulse Rate [ Apical] Pulse Rate [ Left Radial] Pulse Rate [ Right Radial] Respiratory Rate Blood Pressure 171/76 O2 Sat by Pulse 98 Oximetry General appearance: Present: no acute distress, well-nourished - EENT Eyes: PERRL, EOM intact ENT: hearing intact, clear oral mucosa, other Ears: bilateral: normal - Neck Neck: supple, normal ROM - Respiratory Respiratory effort: normal Respiratory: bilateral: CTA - Breasts Breasts: normal - Cardiovascular Rhythm: regular Heart Sounds: Present: S1 & S2. Absent: gallop, rub Extremities: pulses intact, No edema, normal color, Full ROM Extremity abnormal: other (Generalized weakness) - Gastrointestinal General gastrointestinal: Present: soft, non-tender, non-distended, normal bowel sounds - Genitourinary Female genitourinary: normal - Integumentary Integumentary: clear, warm, dry - Musculoskeletal Musculoskeletal: 1, strength equal bilaterally - Neurologic Neurologic: moves all extremities, other (Focal neurologic deficit right hemiparesis dysphasia.) - Psychiatric Psychiatric: memory intact, appropriate mood/affect, intact judgment & insight - Labs CBC & Chem 7: 06/21/20 08:14 06/21/20 08:14 Labs: Abnormal lab results 06/21/20 06/21/20 Range/Units 08:14 08:14 Hgb 15.2 H (10.1-14.3) gm/dl Hct 45.6 H (30.3-42.9) % Carbon Dioxide 21 L (22-30) mmol/L BUN 19 H (7-17) mg/dL Cholesterol 210 H (50-199) mg/dL LDL Cholesterol Direct 131 H (50-130) mg/dL HDL Cholesterol 77 H (40-59) mg/dL - Imaging and cardiology EKG: image reviewed Chest x-ray: report reviewed CT Scan - head: report reviewed, image reviewed MRI - head: report reviewed HEART Score - HEART Score EKG: Non-specific Age: 45-65 Risk factors: 1-2 risk factors Troponin: Troponin T < 0.010 ng/mL (0.00-0.029) 06/20/20 11:44 Troponin: < normal limit - Critical Actions Critical Actions: 0-3 pts:0.9-1.7%risk of adverse cardiac event.Candidate for discharge
[2020-06-22] MEDS: HEPARIN 5,000 UNIT/1 ML VIAL SUB-Q SCH ×2 (09:56→21:22)
[2020-06-22] MEDS: VALSARTAN 160MG TAB PO SCH ×2 (09:56→21:22)
[2020-06-22] MEDS: FAMOTIDINE 20 MG/2 ML INJ IV SCH ×2 (09:57→21:22)
[2020-06-22] MEDS: ASPIRIN 325 MG TAB PO SCH (09:58)
--- NOTE | 2020-06-22 13:17 | Progress Note ---
Assessment and Plan - Patient Problems (1) Acute CVA (cerebrovascular accident) Current Visit: Yes Status: Acute Plan to address problem: Patient with acute CVA right sided. MRI revealed left MCA parietal infarct. Also chronic changes in the ganglia. Parietal infarct. CT head and neck showed moderate to severe stenosis LM1. Patient to receive rehab services. Aspirin. Antiplatelet anti-thrombin with statin. For the following eval PT OT speech eval. Patient will need therapy whether prison facility or inpatient. Has had some improvement. Currently treating with aspirin secondary to high risk for hemorrhagic conversion. On CT scan patient did have some possible evidence of some hemorrhage earlier. We have allow permissive hypertension for the first 35 hours. Now became a little more aggressive towards blood pressure slowly and is doing much better blood pressure 158/88 today. Continue antiplatelet anti-lipid and improved blood pressure control. Goal for LDL less than 70. (2) Hypertensive urgency, malignant Current Visit: Yes Status: Acute Plan to address problem: Much better control now. Allow permissive hypertension as mentioned earlier. Titrate accordingly. Blood pressure currently 150-158/80-95. Continue ariana sartan (3) Volume depletion Current Visit: Yes Status: Acute Plan to address problem: Has resolved patient up eating clear liquid diet did well. Ate with the left hand. (4) Hyperlipidemia LDL goal <70 Current Visit: Yes Status: Acute Plan to address problem: Continue atorvastatin follow-up LDL. Was presently at 131. Subjective Date of service: 06/22/20 Principal diagnosis: Stroke Interval history: Patient 59-year-old female presented with difficulty speaking an acute episode of dysphasia and right-sided weakness. Patient today is much more alert talking more. Able to say some words remains aphasic. Hospital course today patient was able to move right arm up and open and close hand which was new from . So has had some improvement from stroke. Objective - Constitutional Vitals: Vital Signs - 12hr 06/22/20 06/22/20 06/22/20 05:30 08:03 09:56 Temperature 98 F 98.1 F Pulse Rate 78 79 79 Respiratory 20 Rate Blood Pressure 158/78 158/78 Blood Pressure 121/68 [Left] O2 Sat by Pulse 100 Oximetry General appearance: Present: no acute distress, cachectic - EENT Eyes: PERRL, EOM intact ENT: hearing intact, clear oral mucosa, other (Dysphasia) Ears: bilateral: normal - Neck Neck: supple, normal ROM - Respiratory Respiratory effort: normal Respiratory: bilateral: CTA - Breasts Breasts: normal - Cardiovascular Rhythm: regular Heart Sounds: Present: S1 & S2. Absent: gallop, rub Extremities: pulses intact, No edema, normal color, Full ROM - Gastrointestinal General gastrointestinal: Present: soft, non-tender, non-distended, normal bowel sounds - Genitourinary Female genitourinary: normal - Integumentary Integumentary: clear, warm, dry - Musculoskeletal Musculoskeletal: right sided weakness - Neurologic Neurologic: moves all extremities, other (Right-sided hemiparesis. Improved somewhat from yesterday.) - Psychiatric Psychiatric: appropriate mood/affect, intact judgment & insight, memory intact, other (As far as we could tell with questioning patient is appropriate attempts to make needs known.) - Labs CBC & Chem 7: 06/21/20 08:14 06/21/20 08:14 HEART Score - HEART Score EKG: Non-specific Age: 45-65 Risk factors: 1-2 risk factors Troponin: Troponin T < 0.010 ng/mL (0.00-0.029) 06/20/20 11:44 Troponin: < normal limit - Critical Actions Critical Actions: 0-3 pts:0.9-1.7%risk of adverse cardiac event.Candidate for discharge
--- NOTE | 2020-06-23 09:47 | Progress Note ---
Assessment and Plan - Patient Problems (1) Acute CVA (cerebrovascular accident) Current Visit: Yes Status: Acute Plan to address problem: Patient with acute CVA right sided. MRI revealed left MCA parietal infarct. Also chronic changes in the ganglia. Parietal infarct. CT head and neck showed moderate to severe stenosis LM1. Patient to receive rehab services. Aspirin. Antiplatelet anti-thrombin with statin. For the following eval PT OT speech eval. Patient will need therapy whether fpc facility or inpatient. Has had some improvement. Currently treating with aspirin secondary to high risk for hemorrhagic conversion. Patient clinically continues to improve. Will titrate antihypertensives to meet goal of systolic blood pressure 150. (2) Hypertensive urgency, malignant Current Visit: Yes Status: Acute Plan to address problem: We will add amlodipine today to Diovan. We have already allow permissive hypertension the last 36 hours. Will titrate further for systolic blood pressure of 150 (3) Volume depletion Current Visit: Yes Status: Acute Plan to address problem: Has resolved patient up eating clear liquid diet did well. Ate with the left hand. (4) Hyperlipidemia LDL goal <70 Current Visit: Yes Status: Acute Plan to address problem: Continue atorvastatin follow-up LDL. Was presently at 131. Subjective Date of service: 06/23/20 Principal diagnosis: Stroke Interval history: Patient much more alert and talkative today. Patient actually can lift right arm higher than yesterday. Also handgrip is improved. Patient also aphasia improving since yesterday. Spoke with daughter in detail all questions and concerns answered to daughter satisfaction. Objective - Constitutional Vitals: Vital Signs - 12hr 06/23/20 06/23/20 06/23/20 00:34 03:00 03:59 Temperature 98.0 F 98.0 F Pulse Rate 70 64 70 Respiratory 18 20 Rate Blood Pressure 144/62 150/64 O2 Sat by Pulse 98 99 Oximetry 06/23/20 08:33 Temperature 98.3 F Pulse Rate 71 Respiratory 20 Rate Blood Pressure 162/69 O2 Sat by Pulse 100 Oximetry General appearance: Present: no acute distress - EENT Eyes: PERRL, EOM intact ENT: other (Aphasia improving) - Neck Neck: supple, normal ROM - Respiratory Respiratory effort: normal - Breasts Breasts: deferred - Cardiovascular Rhythm: regular Heart Sounds: Present: S1 & S2. Absent: gallop, rub Extremities: pulses intact, No edema, normal color, Full ROM - Gastrointestinal General gastrointestinal: Present: soft, non-tender, non-distended, normal bowel sounds - Integumentary Integumentary: clear, warm, dry - Musculoskeletal Musculoskeletal: right sided weakness - Neurologic Neurologic: focal deficits, other (Right-sided hemiparesis aphasia) - Psychiatric Psychiatric: appropriate mood/affect, intact judgment & insight, memory intact, cooperative - Labs CBC & Chem 7: 06/21/20 08:14 06/21/20 08:14 HEART Score - HEART Score EKG: Non-specific Age: 45-65 Risk factors: 1-2 risk factors Troponin: Troponin T < 0.010 ng/mL (0.00-0.029) 06/20/20 11:44 Troponin: < normal limit - Critical Actions Critical Actions: 0-3 pts:0.9-1.7%risk of adverse cardiac event.Candidate for discharge
[2020-06-23] MEDS ORDERED: amLODIPine 5 MG TAB PO ONE (09:48)
[2020-06-23] MEDS: ASPIRIN 325 MG TAB PO SCH (09:49)
[2020-06-23] MEDS: HEPARIN 5,000 UNIT/1 ML VIAL SUB-Q SCH ×2 (09:50→23:24)
[2020-06-23] MEDS: VALSARTAN 160MG TAB PO SCH ×2 (09:50→23:22)
[2020-06-23] MEDS: FAMOTIDINE 20 MG/2 ML INJ IV SCH ×2 (09:51→23:23)
[2020-06-23] MEDS: SODIUM CHLORIDE 0.9% 1000 ML 1,000 ML IV SCH (15:02)
[2020-06-24 08:28] LABS: Basophils # (Auto) 0.1 K/mm3 (0.0-0.1); Eosinophils # (Auto) 0.1 K/mm3 (0.0-0.4); Eosinophils % (Auto) 2.3 % (0.0-4.3); Hematocrit 40.7 % (30.3-42.9); Hemoglobin 13.8 gm/dl (10.1-14.3); Lymphocytes # (Auto) 2.4 K/mm3 (1.2-5.4); Lymphocytes % (Auto) 42.4 % (13.4-35.0); Mean Corpuscular HGB Conc 34 % (30-34); Mean Corpuscular Volume 96 fl (79-97); Monocytes # (Auto) 0.3 K/mm3 (0.0-0.8); Monocytes % (Auto) 5.9 % (0.0-7.3); Platelet Count 180 K/mm3 (140-440); Red Blood Count 4.26 M/mm3 (3.65-5.03); Red Cell Distribution Width 13.9 % (13.2-15.2)
[2020-06-24 08:55] LABS: BUN/Creatinine Ratio 16; Blood Urea Nitrogen 13 mg/dL (7-17); Calcium 9.3 mg/dL (8.4-10.2); Hemolysis Index 4
[2020-06-24] MEDS: ASPIRIN 325 MG TAB PO SCH (10:00)
[2020-06-24] MEDS: VALSARTAN 160MG TAB PO SCH ×2 (10:00→22:53)
[2020-06-24] MEDS: FAMOTIDINE 20 MG TAB PO SCH ×2 (10:01→22:53)
[2020-06-24] MEDS: HEPARIN 5,000 UNIT/1 ML VIAL SUB-Q SCH ×2 (10:01→22:53)
--- NOTE | 2020-06-24 13:20 | Progress Note ---
Assessment and Plan - Patient Problems (1) Acute CVA (cerebrovascular accident) Current Visit: Yes Status: Acute Plan to address problem: Patient with acute CVA right sided. MRI revealed left MCA parietal infarct. Also chronic changes in the ganglia. Parietal infarct. CT head and neck showed moderate to severe stenosis LM1. Patient to receive rehab services. Aspirin. Antiplatelet anti-thrombin with statin. For the following eval PT OT speech eval. Patient will need therapy whether [facility]pc facility or inpatient. Has had some improvement. Currently treating with aspirin secondary to high risk for hemorrhagic conversion. Patient clinically continues to improve. Will titrate antihypertensives to meet goal of systolic blood pressure 150. At present patient is nonfunded and not a candidate for any acute rehab services at this point. We will continue PT OT in house and see if we could prepare patient for home health and physical therapy in the home. (2) Hypertensive urgency, malignant Current Visit: Yes Status: Acute Plan to address problem: Much better with the addition of amlodipine and continue Diovan. We have already allow permissive hypertension the last 36 hours. Will titrate further for systolic blood pressure of 150 now optimize medical management. (3) Volume depletion Current Visit: Yes Status: Acute Plan to address problem: Has resolved patient up eating clear liquid diet did well. Ate with the left hand. (4) Hyperlipidemia LDL goal <70 Current Visit: Yes Status: Acute Plan to address problem: Continue atorvastatin follow-up LDL. Was presently at 131. Subjective Date of service: 06/24/20 Principal diagnosis: Stroke Interval history: Patient today states she feels bad. Clinically has been improving since initial hospital stay as evidenced by increased handgrip strength of right arm able to lift arm against gravity. Patient appears to have had a setback today. Not physically however emotionally. Not sure patient may be depressed. Otherwise hospital course unremarkable. Objective - Constitutional Vitals: Vital Signs - 12hr 06/24/20 06/24/20 06/24/20 04:10 08:50 09:45 Temperature 98.1 F 97.6 F Pulse Rate 74 74 Respiratory 16 18 Rate Blood Pressure 151/71 157/68 O2 Sat by Pulse 99 99 98 Oximetry 06/24/20 06/24/20 10:00 11:00 Temperature Pulse Rate 63 Respiratory Rate Blood Pressure 157/80 O2 Sat by Pulse Oximetry General appearance: Present: no acute distress, well-nourished, other (Improving aphasia) - EENT Eyes: PERRL, EOM intact ENT: hearing intact, clear oral mucosa, dentition normal - Respiratory Respiratory effort: normal Respiratory: bilateral: CTA (Poor inspiratory effort) - Cardiovascular Rhythm: regular Heart Sounds: Present: S1 & S2. Absent: gallop, rub Extremities: no ischemia, pulses intact, pulses symmetrical, No edema, normal temperature, normal color - Musculoskeletal Musculoskeletal: right sided weakness, generalized weakness - Neurologic Neurologic: focal deficits - Psychiatric Psychiatric: memory intact, appropriate mood/affect, intact judgment & insight - Labs CBC & Chem 7: 06/24/20 07:48 06/24/20 07:48 Labs: Abnormal lab results 06/24/20 Range/Units 07:48 Lymph % (Auto) 42.4 H (13.4-35.0) % HEART Score - HEART Score EKG: Non-specific Age: 45-65 Risk factors: 1-2 risk factors Troponin: Troponin T < 0.010 ng/mL (0.00-0.029) 06/20/20 11:44 Troponin: < normal limit - Critical Actions Critical Actions: 0-3 pts:0.9-1.7%risk of adverse cardiac event.Candidate for discharge
[2020-06-25] MEDS: ASPIRIN 325 MG TAB PO SCH (09:15)
[2020-06-25] MEDS: VALSARTAN 160MG TAB PO SCH ×2 (09:15→21:47)
[2020-06-25] MEDS: FAMOTIDINE 20 MG TAB PO SCH ×2 (09:16→21:47)
[2020-06-25] MEDS: HEPARIN 5,000 UNIT/1 ML VIAL SUB-Q SCH ×2 (09:16→21:46)
--- NOTE | 2020-06-25 10:15 | Progress Note ---
Assessment and Plan Assessment and plan: Acute CVA (cerebrovascular accident) Patient with acute CVA right sided. MRI revealed left MCA parietal infarct. Also chronic changes in the ganglia. CT head and neck showed moderate to severe stenosis LM1. Patient to receive rehab services. Patient will need therapy whether [facility] facility or inpatient. Has had some improvement. Currently treating with aspirin secondary to high risk for hemorrhagic conversion. Patient clinically continues to improve. Will titrate antihypertensives to meet goal of systolic blood pressure 150. At present patient is nonfunded and not a candidate for any acute rehab services at this point. We will continue PT OT in house and see if we could prepare patient for home health and physical therapy in the home. Hypertensive urgency, malignant Much better with the addition of amlodipine and continue Diovan. We have already allow permissive hypertension the last 36 hours. Will titrate further for systolic blood pressure of 150 now optimize medical management. Volume depletion Current Visit: Yes Status: Acute Plan to address problem: Has resolved patient up eating clear liquid diet did well. Ate with the left hand. Hyperlipidemia LDL goal <70 Continue atorvastatin follow-up LDL. History Interval history: No new issues overnight. Hospitalist Physical - Constitutional Vitals: Temp Pulse Resp BP Pulse Ox 98.0 F 78 20 183/82 99 06/25/20 08:12 06/25/20 09:15 06/25/20 08:12 06/25/20 09:15 06/25/20 08:12 General appearance: Present: no acute distress, well-nourished, other (Improving aphasia) - EENT Eyes: Present: PERRL, EOM intact ENT: hearing intact, clear oral mucosa, dentition normal - Neck Neck: Present: supple, normal ROM - Respiratory Respiratory effort: normal Respiratory: bilateral: CTA - Cardiovascular Rhythm: regular Heart Sounds: Present: S1 & S2. Absent: gallop, rub - Extremities Extremities: no ischemia, No edema, Full ROM - Abdominal General gastrointestinal: soft, non-tender, non-distended, normal bowel sounds - Integumentary Integumentary: Present: clear, warm, dry - Neurologic Neurologic: CNII-XII intact, moves all extremities HEART Score - HEART Score EKG: Non-specific Age: 45-65 Risk factors: 1-2 risk factors Troponin: Troponin T < 0.010 ng/mL (0.00-0.029) 06/20/20 11:44 Troponin: < normal limit - Critical Actions Critical Actions: 0-3 pts:0.9-1.7%risk of adverse cardiac event.Candidate for discharge Results - Labs CBC & Chem 7: 06/24/20 07:48 06/24/20 07:48 Labs: Laboratory Last Values WBC 5.6 K/mm3 (4.5-11.0) 06/24/20 07:48 RBC 4.26 M/mm3 (3.65-5.03) 06/24/20 07:48 Hgb 13.8 gm/dl (10.1-14.3) 06/24/20 07:48 Hct 40.7 % (30.3-42.9) 06/24/20 07:48 MCV 96 fl (79-97) 06/24/20 07:48 MCH 32 pg (28-32) 06/24/20 07:48 MCHC 34 % (30-34) 06/24/20 07:48 RDW 13.9 % (13.2-15.2) 06/24/20 07:48 Plt Count 180 K/mm3 (140-440) 06/24/20 07:48 Lymph % (Auto) 42.4 % (13.4-35.0) H 06/24/20 07:48 Lea % (Auto) 5.9 % (0.0-7.3) 06/24/20 07:48 Eos % (Auto) 2.3 % (0.0-4.3) 06/24/20 07:48 Baso % (Auto) 1.0 % (0.0-1.8) 06/24/20 07:48 Lymph # 2.4 K/mm3 (1.2-5.4) 06/24/20 07:48 Lea # 0.3 K/mm3 (0.0-0.8) 06/24/20 07:48 Eos # 0.1 K/mm3 (0.0-0.4) 06/24/20 07:48 Baso # 0.1 K/mm3 (0.0-0.1) 06/24/20 07:48 Seg Neutrophils % 48.4 % (40.0-70.0) 06/24/20 07:48 Seg Neutrophils # 2.7 K/mm3 (1.8-7.7) 06/24/20 07:48 PT 13.6 Sec. (12.2-14.9) 06/20/20 11:44 INR 1.03 (0.87-1.13) 06/20/20 11:44 APTT 29.0 Sec. (24.2-36.6) 06/20/20 11:44 Thrombin Time 16.0 Sec. (15.1-19.6) 06/20/20 11:44 Sodium 145 mmol/L (137-145) 06/24/20 07:48 Potassium 4.4 mmol/L (3.6-5.0) 06/24/20 07:48 Chloride 106.7 mmol/L (98-107) 06/24/20 07:48 Carbon Dioxide 26 mmol/L (22-30) 06/24/20 07:48 Anion Gap 17 mmol/L 06/24/20 07:48 BUN 13 mg/dL (7-17) 06/24/20 07:48 Creatinine 0.8 mg/dL (0.6-1.2) 06/24/20 07:48 Estimated GFR > 60 ml/min 06/24/20 07:48 BUN/Creatinine Ratio 16 % 06/24/20 07:48 Glucose 94 mg/dL (65-100) 06/24/20 07:48 Hemoglobin A1c 5.7 % (4-6) 06/21/20 08:14 Calcium 9.3 mg/dL (8.4-10.2) 06/24/20 07:48 Total Bilirubin 0.60 mg/dL (0.1-1.2) 06/21/20 08:14 AST 24 units/L (5-40) 06/21/20 08:14 ALT 8 units/L (7-56) 06/21/20 08:14 Alkaline Phosphatase 103 units/L (35-129) 06/21/20 08:14 Total Creatine Kinase 118 units/L (30-135) 06/20/20 11:44 CK-MB (CK-2) 2.6 ng/mL (0.0-4.0) 06/20/20 11:44 CK-MB (CK-2) Rel Index 2.2 (0-4) 06/20/20 11:44 Troponin T < 0.010 ng/mL (0.00-0.029) 06/20/20 11:44 Total Protein 7.7 g/dL (6.3-8.2) 06/21/20 08:14 Albumin 4.1 g/dL (3.9-5) 06/21/20 08:14 Albumin/Globulin Ratio 1.1 % 06/21/20 08:14 Triglycerides 46 mg/dL (2-149) 06/21/20 08:14 Cholesterol 210 mg/dL (50-199) H 06/21/20 08:14 LDL Cholesterol Direct 131 mg/dL (50-130) H 06/21/20 08:14 HDL Cholesterol 77 mg/dL (40-59) H 06/21/20 08:14 Cholesterol/HDL Ratio 2.72 % 06/21/20 08:14 - Diagnostic Impressions Diagnostic Impressions: Echocardiogram 06/20/20 21:36 Transthoracic Echocardiogram Indication: Stroke BP: 176/77 HR: 74 Conclusions *Global left ventricular systolic function is normal. *The estimated ejection fraction is 60-65%. *Mild concentric left ventricular hypertrophy is observed. *There is mild mitral regurgitation. *There is mild aortic regurgitation. *There is trace tricuspid regurgitation. *A patent foramen ovale is not demonstrated by agitated saline contrast. Findings Left Ventricle: The left ventricular chamber size is normal. Mild concentric left ventricular hypertrophy is observed. Global left ventricular systolic function is normal. The estimated ejection fraction is 60-65%. Left Atrium: The left atrial chamber size is normal. Right Ventricle: The right ventricular cavity size is normal. The right ventricular global systolic function is normal. Right Atrium: The right atrial cavity size is normal. A patent foramen ovale is not demonstrated by agitated saline contrast. Aortic Valve: The aortic valve is trileaflet. The aortic valve leaflets are moderately thickened. There is mild aortic regurgitation. There is no evidence of aortic stenosis. Mitral Valve: The mitral valve leaflets are mildly thickened. There is mild mitral regurgitation. There is no evidence of mitral stenosis. Tricuspid Valve: There is trace tricuspid regurgitation. There is evidence of borderline pulmonary hypertension. Pulmonic Valve: There is trace pulmonic regurgitation. Pericardium: There is no pericardial effusion. Aorta: There is no dilatation of the ascending aorta. There is no dilatation of the aortic root. Venous: The inferior vena cava appears normal in size. Contrast: Intravenous agitated saline contrast was used to assess intracardiac shunting. Measurements Chambers 2D Name Value Normal Range IVSd (2D) 0.93 cm (0.6 - 1.1) LVPWd (2D) 0.96 cm (0.6 - 1.1) LVIDd (2D) 3.53 cm (3.7 - 5.6) LVIDs (2D) 2.61 cm (2 - 3.8) LV FS (2D) 26.05 % - EF Teichholz (2D) 52.14 % - Ao root diameter (2D) 2.08 cm (2 - 3.7) Volumes/Mass Name Value Normal Range LA ESV SP 4CH (A/L) 12.95 ml - LA ESV SP 2CH (A/L) 17.79 ml - LA ESV BP (A/L) 16.24 ml - LA ESV BP (A/L) index 10.76 ml/m2 - LA ESV SP 4CH (MOD) 11.88 ml - LA ESV SP 2CH (MOD) 17.21 ml - LA ESV BP (MOD) 15.27 ml - LA ESV BP (MOD) index 10.11 ml/m2 - Diastolic/Systolic Function Name Value Normal Range MV E-wave Vmax 0.52 m/sec - MV deceleration time 252.12 msec - MV A-wave Vmax 0.68 m/sec - MV E:A ratio 0.76 ratio - Aortic Valve Name Value Normal Range AV Vmax 1.73 m/sec - AV VTI 31.38 cm - AV peak gradient 11.99 mmHg - AV mean gradient 5.95 mmHg - LVOT diameter 1.87 cm - LVOT Vmax 1.1 m/sec - LVOT VTI 23.63 cm - LVOT peak gradient 4.88 mmHg - LVOT mean gradient 2.26 mmHg - SV LVOT 64.74 ml - VANESSA (continuity Vmax) 1.75 cm2 - VANESSA (continuity VTI) 2.06 cm2 - AR PHT 603.04 msec - AR peak gradient 84.7 mmHg - Tricuspid Valve Name Value Normal Range TR Vmax 2.27 m/sec - TR peak gradient 21 mmHg - RAP 3 mmHg - RVSP 24 mmHg - Pulmonic Valve/Qp:Qs Name Value Normal Range PV acceleration time 114.18 msec - Meek/IV: Voiding Method External Female Catheter IV Catheter Type [Right Hand] INT / Saline Lock IV Catheter Type [Left INT / Saline Lock Antecubital] IV Catheter Type [Right INT / Saline Lock Antecubital] IV Catheter Type [Left Forearm INT / Saline Lock ] Active Medications - Current Medications Current Medications: Generic Name Dose Route Start Last Admin Trade Name Freq PRN Reason Stop Dose Admin Acetaminophen 650 mg 06/20/20 21:32 Tylenol PO Q4H PRN Pain MILD(1-3)/Fever >100.5/MASSEY Aspirin 325 mg 06/21/20 10:00 06/25/20 09:15 Aspirin PO 325 mg QDAY MOSHE Administration Atorvastatin Calcium 40 mg 06/20/20 22:00 06/24/20 22:54 Lipitor PO 40 mg QHS MOSHE Administration Famotidine 20 mg 06/24/20 10:00 06/25/20 09:16 Pepcid PO 20 mg BID MOSHE Administration Heparin Sodium (Porcine) 5,000 unit 06/20/20 22:00 06/25/20 09:16 Heparin SUB-Q 5,000 unit Q12HR MOSHE Administration Hydromorphone HCl 0.5 mg 06/20/20 18:22 06/20/20 21:45 Dilaudid IV 0.5 mg Q3H PRN Administration Pain , Severe (7-10) Sodium Chloride 1,000 mls @ 42 mls/hr 06/20/20 21:45 06/23/20 15:02 Nacl 0.9% 1000 Ml IV 42 mls/hr DIRECT MOSHE Administration Ondansetron HCl 4 mg 06/20/20 21:32 Zofran IV Q8H PRN Nausea And Vomiting Oxycodone/Acetaminophen 1 tab 06/20/20 21:32 Percocet 5/325 PO Q6H PRN Pain, Moderate (4-6) Sodium Chloride 10 ml 06/20/20 22:00 06/25/20 09:16 Sodium Chloride Flush Syringe 10 Ml IV 10 ml BID MOSHE Administration Sodium Chloride 10 ml 06/20/20 21:32 Sodium Chloride Flush Syringe 10 Ml IV PRN PRN LINE FLUSH Valsartan 160 mg 06/21/20 10:00 06/25/20 09:15 Diovan PO 160 mg BID MOSHE Administration Nutrition/Malnutrition Assess - Dietary Evaluation Nutrition/Malnutrition Findings: Nutrition Notes Start: 06/21/20 11:56 Freq: Status: Active Protocol: Document 06/21/20 12:36 [email or web address] (Rec: 06/21/20 13:24 [email or web address]) Co-Sign 06/21/20 12:36 LM Nutrition Notes Need for Assessment generated from: Low BMI Initial or Follow up Assessment Other Pertinent Diagnosis Acute CVA, hypertensive urgency Current Diet Mechanical stoft Labs/Tests BUN 19 Cholesterol 210 LDL 131 HDL 77 Pertinent Medications Reviewed Height 5 ft 5 in Weight 48.081 kg Gillespie Body Weight (kg) 56.81 BMI 17.6 Subjective/Other Information Pt screened for low BMI. Pt was not in room of time of visit. Not able to reach pt by phone. Pts diet advanced from NPO to mechanical soft after passing swallow study. Per RN, Pt just started to eat lunch and is tolerating Burn Absent Trauma Absent GI Symptoms None Minimum of two criteria No physical signs of malnutrition #1 Nutrition Diagnosis Predicted suboptimal energy intake Etiology acute CVA As Evidenced by Signs and Symptoms Pt has a BMI of 17.6 Is patient on ventilator? No Is Patient Ambulatory and/or Out of Bed No REE-(Henderson-St. Jeor-confined to bed) 1267.200 Kcal/Kg value to use for calculation 35 Approximate Energy Requirements Using 1683 kcal/Kg Calculation Used for Recommendations Kcal/kg Additional Notes Protein Needs (1-1.2g/kg) 48- 58g/kg Fluid Needs: 1ml/kcal Nutrition Intervention Change Diet Order: Continue Add Supplement/Snack (indicate name/kcal Ensure Enlive BID /protein ) Provides kCal: 700 Provides Protein (gm) 40 Goal #1 Meet at least 75% of energy and protein needs Goal #2 diet tolerance Anticipated Discharge Needs: Cardiac Follow-Up By: 06/25/20 Additional Comments F/U for intakes and ONS tolerance
[2020-06-25] MEDS: NIFEdipine XL 30 MG TAB PO SCH ×2 (13:17→21:47)
--- NOTE | 2020-06-26 09:28 | Progress Note ---
Assessment and Plan Assessment and plan: Acute CVA (cerebrovascular accident) Patient with acute CVA right sided. MRI revealed left MCA parietal infarct. Also chronic changes in the ganglia. CT head and neck showed moderate to severe stenosis LM1. Patient to receive rehab services. Patient will need therapy whether halfway facility or inpatient. Has had some improvement. Currently treating with aspirin secondary to high risk for hemorrhagic conversion. Patient clinically continues to improve. Will titrate antihypertensives to meet goal of systolic blood pressure 150. At present patient is nonfunded and not a candidate for any acute rehab services at this point. We will continue PT OT in house and see if we could prepare patient for home health and physical therapy in the home. Hypertensive urgency, malignant Much better with the addition of amlodipine and continue Diovan. We have already allow permissive hypertension the last 36 hours. Will titrate further for systolic blood pressure of 150 now optimize medical management. Volume depletion Current Visit: Yes Status: Acute Plan to address problem: Has resolved patient up eating clear liquid diet did well. Ate with the left hand. Hyperlipidemia LDL goal <70 Continue atorvastatin follow-up LDL. 06/26/2020. Continue aspirin per neurology recommendations. Neurology reported that would consider for patient to be started on DAPT, however NIHSS is high, and there is potenital risk of hemorrhagic conversion, with possible area of hemorrhagic conversion seen on CT head. Therefore will only recommend ASA 81mg daily for now. Await acute rehab placement. History Interval history: No new issues overnight. Hospitalist Physical - Constitutional Vitals: Temp Pulse Resp BP Pulse Ox 97.9 F 68 18 137/59 100 06/26/20 07:58 06/26/20 07:58 06/26/20 07:58 06/26/20 07:58 06/26/20 07:58 General appearance: Present: no acute distress, well-nourished, other (Improving aphasia) - EENT Eyes: Present: PERRL, EOM intact ENT: hearing intact, clear oral mucosa, dentition normal - Neck Neck: Present: supple, normal ROM - Respiratory Respiratory effort: normal Respiratory: bilateral: CTA - Cardiovascular Rhythm: regular Heart Sounds: Present: S1 & S2. Absent: gallop, rub - Extremities Extremities: no ischemia, No edema, Full ROM - Abdominal General gastrointestinal: soft, non-tender, non-distended, normal bowel sounds - Integumentary Integumentary: Present: clear, warm, dry - Neurologic Neurologic: CNII-XII intact, moves all extremities HEART Score - HEART Score EKG: Non-specific Age: 45-65 Risk factors: 1-2 risk factors Troponin: Troponin T < 0.010 ng/mL (0.00-0.029) 06/20/20 11:44 Troponin: < normal limit - Critical Actions Critical Actions: 0-3 pts:0.9-1.7%risk of adverse cardiac event.Candidate for discharge Results - Labs CBC & Chem 7: 06/24/20 07:48 06/24/20 07:48 Labs: Laboratory Last Values WBC 5.6 K/mm3 (4.5-11.0) 06/24/20 07:48 RBC 4.26 M/mm3 (3.65-5.03) 06/24/20 07:48 Hgb 13.8 gm/dl (10.1-14.3) 06/24/20 07:48 Hct 40.7 % (30.3-42.9) 06/24/20 07:48 MCV 96 fl (79-97) 06/24/20 07:48 MCH 32 pg (28-32) 06/24/20 07:48 MCHC 34 % (30-34) 06/24/20 07:48 RDW 13.9 % (13.2-15.2) 06/24/20 07:48 Plt Count 180 K/mm3 (140-440) 06/24/20 07:48 Lymph % (Auto) 42.4 % (13.4-35.0) H 06/24/20 07:48 [place] % (Auto) 5.9 % (0.0-7.3) 06/24/20 07:48 Eos % (Auto) 2.3 % (0.0-4.3) 06/24/20 07:48 Baso % (Auto) 1.0 % (0.0-1.8) 06/24/20 07:48 Lymph # 2.4 K/mm3 (1.2-5.4) 06/24/20 07:48 [place] # 0.3 K/mm3 (0.0-0.8) 06/24/20 07:48 Eos # 0.1 K/mm3 (0.0-0.4) 06/24/20 07:48 Baso # 0.1 K/mm3 (0.0-0.1) 06/24/20 07:48 Seg Neutrophils % 48.4 % (40.0-70.0) 06/24/20 07:48 Seg Neutrophils # 2.7 K/mm3 (1.8-7.7) 06/24/20 07:48 PT 13.6 Sec. (12.2-14.9) 06/20/20 11:44 INR 1.03 (0.87-1.13) 06/20/20 11:44 APTT 29.0 Sec. (24.2-36.6) 06/20/20 11:44 Thrombin Time 16.0 Sec. (15.1-19.6) 06/20/20 11:44 Sodium 145 mmol/L (137-145) 06/24/20 07:48 Potassium 4.4 mmol/L (3.6-5.0) 06/24/20 07:48 Chloride 106.7 mmol/L (98-107) 06/24/20 07:48 Carbon Dioxide 26 mmol/L (22-30) 06/24/20 07:48 Anion Gap 17 mmol/L 06/24/20 07:48 BUN 13 mg/dL (7-17) 06/24/20 07:48 Creatinine 0.8 mg/dL (0.6-1.2) 06/24/20 07:48 Estimated GFR > 60 ml/min 06/24/20 07:48 BUN/Creatinine Ratio 16 % 06/24/20 07:48 Glucose 94 mg/dL (65-100) 06/24/20 07:48 Hemoglobin A1c 5.7 % (4-6) 06/21/20 08:14 Calcium 9.3 mg/dL (8.4-10.2) 06/24/20 07:48 Total Bilirubin 0.60 mg/dL (0.1-1.2) 06/21/20 08:14 AST 24 units/L (5-40) 06/21/20 08:14 ALT 8 units/L (7-56) 06/21/20 08:14 Alkaline Phosphatase 103 units/L (35-129) 06/21/20 08:14 Total Creatine Kinase 118 units/L (30-135) 06/20/20 11:44 CK-MB (CK-2) 2.6 ng/mL (0.0-4.0) 06/20/20 11:44 CK-MB (CK-2) Rel Index 2.2 (0-4) 06/20/20 11:44 Troponin T < 0.010 ng/mL (0.00-0.029) 06/20/20 11:44 Total Protein 7.7 g/dL (6.3-8.2) 06/21/20 08:14 Albumin 4.1 g/dL (3.9-5) 06/21/20 08:14 Albumin/Globulin Ratio 1.1 % 06/21/20 08:14 Triglycerides 46 mg/dL (2-149) 06/21/20 08:14 Cholesterol 210 mg/dL (50-199) H 06/21/20 08:14 LDL Cholesterol Direct 131 mg/dL (50-130) H 06/21/20 08:14 HDL Cholesterol 77 mg/dL (40-59) H 06/21/20 08:14 Cholesterol/HDL Ratio 2.72 % 06/21/20 08:14 - Diagnostic Impressions Diagnostic Impressions: Echocardiogram 06/20/20 21:36 Transthoracic Echocardiogram Indication: Stroke BP: 176/77 HR: 74 Conclusions *Global left ventricular systolic function is normal. *The estimated ejection fraction is 60-65%. *Mild concentric left ventricular hypertrophy is observed. *There is mild mitral regurgitation. *There is mild aortic regurgitation. *There is trace tricuspid regurgitation. *A patent foramen ovale is not demonstrated by agitated saline contrast. Findings Left Ventricle: The left ventricular chamber size is normal. Mild concentric left ventricular hypertrophy is observed. Global left ventricular systolic function is normal. The estimated ejection fraction is 60-65%. Left Atrium: The left atrial chamber size is normal. Right Ventricle: The right ventricular cavity size is normal. The right ventricular global systolic function is normal. Right Atrium: The right atrial cavity size is normal. A patent foramen ovale is not demonstrated by agitated saline contrast. Aortic Valve: The aortic valve is trileaflet. The aortic valve leaflets are moderately thickened. There is mild aortic regurgitation. There is no evidence of aortic stenosis. Mitral Valve: The mitral valve leaflets are mildly thickened. There is mild mitral regurgitation. There is no evidence of mitral stenosis. Tricuspid Valve: There is trace tricuspid regurgitation. There is evidence of borderline pulmonary hypertension. Pulmonic Valve: There is trace pulmonic regurgitation. Pericardium: There is no pericardial effusion. Aorta: There is no dilatation of the ascending aorta. There is no dilatation of the aortic root. Venous: The inferior vena cava appears normal in size. Contrast: Intravenous agitated saline contrast was used to assess intracardiac shunting. Measurements Chambers 2D Name Value Normal Range IVSd (2D) 0.93 cm (0.6 - 1.1) LVPWd (2D) 0.96 cm (0.6 - 1.1) LVIDd (2D) 3.53 cm (3.7 - 5.6) LVIDs (2D) 2.61 cm (2 - 3.8) LV FS (2D) 26.05 % - EF Teichholz (2D) 52.14 % - Ao root diameter (2D) 2.08 cm (2 - 3.7) Volumes/Mass Name Value Normal Range LA ESV SP 4CH (A/L) 12.95 ml - LA ESV SP 2CH (A/L) 17.79 ml - LA ESV BP (A/L) 16.24 ml - LA ESV BP (A/L) index 10.76 ml/m2 - LA ESV SP 4CH (MOD) 11.88 ml - LA ESV SP 2CH (MOD) 17.21 ml - LA ESV BP (MOD) 15.27 ml - LA ESV BP (MOD) index 10.11 ml/m2 - Diastolic/Systolic Function Name Value Normal Range MV E-wave Vmax 0.52 m/sec - MV deceleration time 252.12 msec - MV A-wave Vmax 0.68 m/sec - MV E:A ratio 0.76 ratio - Aortic Valve Name Value Normal Range AV Vmax 1.73 m/sec - AV VTI 31.38 cm - AV peak gradient 11.99 mmHg - AV mean gradient 5.95 mmHg - LVOT diameter 1.87 cm - LVOT Vmax 1.1 m/sec - LVOT VTI 23.63 cm - LVOT peak gradient 4.88 mmHg - LVOT mean gradient 2.26 mmHg - SV LVOT 64.74 ml - VANESSA (continuity Vmax) 1.75 cm2 - VANESSA (continuity VTI) 2.06 cm2 - AR PHT 603.04 msec - AR peak gradient 84.7 mmHg - Tricuspid Valve Name Value Normal Range TR Vmax 2.27 m/sec - TR peak gradient 21 mmHg - RAP 3 mmHg - RVSP 24 mmHg - Pulmonic Valve/Qp:Qs Name Value Normal Range PV acceleration time 114.18 msec - Meek/IV: Voiding Method External Female Catheter IV Catheter Type [Right Hand] INT / Saline Lock IV Catheter Type [Left INT / Saline Lock Antecubital] IV Catheter Type [Right INT / Saline Lock Antecubital] IV Catheter Type [Left Forearm INT / Saline Lock ] Active Medications - Current Medications Current Medications: Generic Name Dose Route Start Last Admin Trade Name Freq PRN Reason Stop Dose Admin Acetaminophen 650 mg 06/20/20 21:32 Tylenol PO Q4H PRN Pain MILD(1-3)/Fever >100.5/MASSEY Aspirin 325 mg 06/21/20 10:00 06/25/20 09:15 Aspirin PO 325 mg QDAY MOSHE Administration Atorvastatin Calcium 40 mg 06/20/20 22:00 06/25/20 21:47 Lipitor PO 40 mg QHS MOSHE Administration Famotidine 20 mg 06/24/20 10:00 06/25/20 21:47 Pepcid PO 20 mg BID MOSHE Administration Heparin Sodium (Porcine) 5,000 unit 06/20/20 22:00 06/25/20 21:46 Heparin SUB-Q 5,000 unit Q12HR MOSHE Administration Hydromorphone HCl 0.5 mg 06/20/20 18:22 06/20/20 21:45 Dilaudid IV 0.5 mg Q3H PRN Administration Pain , Severe (7-10) Sodium Chloride 1,000 mls @ 42 mls/hr 06/20/20 21:45 06/23/20 15:02 Nacl 0.9% 1000 Ml IV 42 mls/hr DIRECT MOSHE Administration Nifedipine 30 mg 06/25/20 12:00 06/25/20 21:47 Procardia Xl PO 30 mg Q12HR MOSHE Administration Ondansetron HCl 4 mg 06/20/20 21:32 Zofran IV Q8H PRN Nausea And Vomiting Oxycodone/Acetaminophen 1 tab 06/20/20 21:32 Percocet 5/325 PO Q6H PRN Pain, Moderate (4-6) Sodium Chloride 10 ml 06/20/20 22:00 06/25/20 21:47 Sodium Chloride Flush Syringe 10 Ml IV 10 ml BID MOSHE Administration Sodium Chloride 10 ml 06/20/20 21:32 Sodium Chloride Flush Syringe 10 Ml IV PRN PRN LINE FLUSH Valsartan 160 mg 06/21/20 10:00 06/25/20 21:47 Diovan PO 160 mg BID MOSHE Administration Nutrition/Malnutrition Assess - Dietary Evaluation Nutrition/Malnutrition Findings: Nutrition Notes Start: 06/21/20 11:56 Freq: Status: Active Protocol: Document 06/25/20 15:01 CHAS (Rec: 06/25/20 15:06 [facility] [id number] [id number]) Nutrition Notes Initial or Follow up Reassessment Other Pertinent Diagnosis Acute CVA, hypertensive urgency Current Diet Cardiac mech soft with ground meats + Ensure Enlive BID Labs/Tests reviewed Pertinent Medications reviewed Height 5 ft 5 in Weight 44.8 kg [place] Body Weight (kg) 56.81 BMI 16.4 Weight Status Underweight Subjective/Other Information Pt has consumed 70% of meals since last assessment. She drinks the ONS; does not like food very much though. Percent of energy/protein needs met: 100% energy and pro (includes ONS) Burn Absent Trauma Absent #1 Nutrition Diagnosis Predicted suboptimal energy intake As Evidenced by Signs and Symptoms PO intakes meeting >75% energy and pro needs Diagnosis Progress(for reassessment Resolved documentation) Is patient on ventilator? No Is Patient Ambulatory and/or Out of Bed No REE-([facility]-confined to bed) 1221.972 Kcal/Kg value to use for calculation 35 Approximate Energy Requirements Using 1568 kcal/Kg Calculation Used for Recommendations Kcal/kg Additional Notes Pro needs 1.2-1.5g/k-67g/ day Fluid needs 1ml/kcal Nutrition Intervention Change Diet Order: Continue current diet order Add Supplement/Snack (indicate name/kcal Ensure Enlive BID (strawberry /protein ) and chocolate) Provides kCal: 700 Provides Protein (gm) 40 Goal #1 PO intakes to continue to meet at least 75% energy and pro needs Goal #2 Wt maintenance and/or gain Follow-Up By: 07/02/20 Additional Comments F/U: stable intakes, wt
[2020-06-26] MEDS: FAMOTIDINE 20 MG TAB PO SCH (10:18)
[2020-06-26] MEDS: ASPIRIN 325 MG TAB PO SCH (10:18)
[2020-06-26] MEDS: HEPARIN 5,000 UNIT/1 ML VIAL SUB-Q SCH (10:18)
[2020-06-26] MEDS: NIFEdipine XL 30 MG TAB PO SCH (10:18)
[2020-06-26] MEDS: VALSARTAN 160MG TAB PO SCH (10:18)
[2020-06-26 11:29] VITALS: BP 123/51
--- NOTE | 2020-06-26 11:53 | Discharge Summary ---
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 She presented through ED with symptoms of difficulty of speech and right sided weakness. Symptoms started around 8pm the night before admission. BP was severely elevated initially, BP of 239/91. In the ER, she was found to have aphasia, dysarthria, and right sided weakness. Patient was admitted with dx of acute CVA and Accel HTN. MRI revealed left MCA parietal infarct. Also chronic changes in the ganglia. CT head and neck showed moderate to severe stenosis LM1. Patient received rehab services. [facility]. However, this was later amended to PT. Pt is unfunded. Neurology saw pt in consultation and recommended aspirin. Neurology reported that would consider for patient to be started on DAPT, however NIHSS was high, and there is potenital risk of hemorrhagic conversion, with possible area of hemorrhagic conversion seen on CT head. Therefore will only recommend ASA 81mg daily for now. Pt felt to receive [facility] and will d/c home Disposition: DC-[id number] TO HOME OR SELFCARE Time spent for discharge: 32 - Discharge Diagnoses (1) Acute CVA (cerebrovascular accident) Status: Acute (2) Hyperlipidemia LDL goal <70 Status: Acute (3) Hypertensive urgency, malignant Status: Acute Core Measure Documentation - Palliative Care Palliative Care/ Comfort Measures: Not Applicable - Core Measures Any of the following diagnoses?: stroke - Stroke Discharge Requirements Statin for LDL = or >70 mg/dl on DC: Yes Anticoag for atrial fib/atrial flutter: Not Applicable Antithrombotic for ischemic stroke: Yes Exam - Constitutional Vitals: Temp Pulse Resp BP Pulse Ox 98.4 F 73 18 123/51 96 06/26/20 11:26 06/26/20 11:26 06/26/20 11:26 06/26/20 11:26 06/26/20 11:26 General appearance: Present: no acute distress, well-nourished - EENT Eyes: Present: PERRL ENT: hearing intact, clear oral mucosa - Neck Neck: Present: supple, normal ROM - Respiratory Respiratory effort: normal Respiratory: bilateral: CTA - Cardiovascular Heart Sounds: Present: S1 & S2. Absent: rub, click - Extremities Extremities: pulses symmetrical, No edema Peripheral Pulses: within normal limits - Abdominal General gastrointestinal: Present: soft, non-tender, non-distended, normal bowel sounds Female genitourinary: Present: normal - Integumentary Integumentary: Present: clear, warm, dry - Musculoskeletal Musculoskeletal: gait normal, strength equal bilaterally - Psychiatric Psychiatric: appropriate mood/affect, intact judgment & insight - Neurologic Neurologic: CNII-XII intact, moves all extremities Plan Activity: advance as tolerated Weight Bearing Status: Weight Bear as Tolerated Diet: low fat, low cholesterol, low salt Follow up with: PRIMARY MD ANTONI [Primary Care Provider] - 3-5 Days GLENN ELENA MD [Staff Physician] - 7 Days Prescriptions: Aspirin 325 mg PO QDAY #30 tablet Valsartan [Diovan] 160 mg PO BID #60 tablet AtorvaSTATin [Lipitor] 40 mg PO QHS #30 tablet NIFEdipine XL [Procardia Xl] 30 mg PO Q12HR #60 tablet
== END 2020-06-26 14:55 | disposition home health service (06) | DRG 65 ==
LOC: ED 11:14 → 4A 15:37
PROVIDERS: ADMIT Internal Medicine; ATTEND Hospitalist
DX: I63.422 Cerebral infarction due to embolism of left anterior cerebral artery (principal); G81.91 Hemiplegia, unspecified affecting right dominant side; I16.0 Hypertensive urgency; I10 Essential (primary) hypertension; E86.9 Volume depletion, unspecified; E78.5 Hyperlipidemia, unspecified; Z82.49 Family history of ischemic heart disease and other diseases of the circulatory system
CPT/HCPCS: 36415; 70450; 70496; 70498; 70551; 80048; 80053; 80061; 82550; 82553; 83036; 84484; 85025; 85610; 85670; 85730; 93005; 93306; 94760; G0378; A9270-GY; J0360; J1170; J1644; J7030; Q9967

== ENCOUNTER 2021-08-04 08:25 | Outpatient (CLI) | payer OTHER ==
--- NOTE | 2021-08-04 09:33 | XRay Report ---
RIGHT SHOULDER 3 VIEWS INDICATION / CLINICAL INFORMATION: RIGHT SHOULDER PAIN. COMPARISON: None available. FINDINGS: BONES / JOINT(S): There are minimal degenerative changes involving the acromioclavicular and glenohum eral joints. There is no evidence of acute fracture, subluxation or destructive lesion. SOFT TISSUES: No significant abnormality. ADDITIONAL FINDINGS: The visualized right lung is clear. IMPRESSION: Minimal degenerative changes without acute abnormality. Signer Name: Jimmie Peralta MD Signed: 08/04/2021 9:29 AM Workstation Name: [id number]
== END 2021-08-04 08:26 | disposition home or self-care (01) ==
LOC: XRAY 08:25
PROVIDERS: ATTEND Internal Medicine
DX: M19.011 Primary osteoarthritis, right shoulder (principal)